=== PATIENT | male | born 1975 | race Caucasian/White ===

== ENCOUNTER 2024-11-12 08:24 | Emergency (ER) | payer OTHER ==
[~2024-11-12] VITALS: Ht 188 cm; Wt 85.6 kg
[2024-11-12 08:33] VITALS: BP 150/96; TEMP 98.9
[2024-11-12] MEDS ORDERED: HYDR-3965 PO (10:40)
[2024-11-12 10:55] VITALS: PULSE 64; RESP 18; O2SAT 98
[2024-11-25] MEDS ORDERED: HYDR-3973 PO (15:52)
== END 2024-11-12 11:39 | disposition home or self-care (01) ==
LOC: ER 08:24
DX: S86.811A Strain of other muscle(s) and tendon(s) at lower leg level, right leg, initial encounter (principal); X58.XXXA Exposure to other specified factors, initial encounter; Y93.89 Activity, other specified; Y92.89 Other specified places as the place of occurrence of the external cause; Y99.8 Other external cause status
CPT/HCPCS: 29515; 99283; L4360; A6449

== ENCOUNTER 2024-11-21 10:10 | Emergency (ER) | payer OTHER ==
[~2024-11-21] VITALS: Ht 188 cm; Wt 95.5 kg
[2024-11-21 10:10] VITALS: BP 181/118; PULSE 102; RESP 16; O2SAT 99
[~2024-11-21 10:10] MED LIST: HYDR-3965 PO
[2024-11-21] MEDS ORDERED: IBUP-864 PO (12:40)
[2024-11-21 13:10] VITALS: TEMP 98
[2024-11-25] MEDS ORDERED: HYDR-3973 PO (15:52)
== END 2024-11-21 13:11 | disposition home or self-care (01) ==
LOC: ER 10:10
DX: S81.811A Laceration without foreign body, right lower leg, initial encounter (principal); Z79.899 Other long term (current) drug therapy; X58.XXXA Exposure to other specified factors, initial encounter; Y93.89 Activity, other specified; Y92.89 Other specified places as the place of occurrence of the external cause; Y99.8 Other external cause status
CPT/HCPCS: 93971; 99284